=== PATIENT | female | born 1965 | race Caucasian/White ===

== ENCOUNTER 2018-05-15 10:40 | Emergency (ER) | payer MEDICAID ==
[~2018-05-15] VITALS: Ht 152.4 cm; Wt 61.2 kg
[2018-05-15 10:42] VITALS: BP 183/112
--- NOTE | 2018-05-15 11:18 | NUR ---
PT. PROVIDED WITH A WATER CUP
--- NOTE | 2018-05-15 11:22 | NUR ---
PATIENT IS A 52 YO FEMALE BIB [facility] FOR PRE BOOK EXAM. SHE IS AWAKE AND ALERT NO ACUTE DISTRESS. HX OF HTN DOES NOT TAKE MEDS, B/P IS 182/114
[2018-05-15] MEDS ORDERED: LISINOPRIL 20 MG TAB PO STA (11:56)
--- NOTE | 2018-05-15 12:36 | NUR ---
B/P 175/104 AT THIS TIME
[2018-05-15] MEDS ORDERED: cloNIDine 0.1 MG TAB ONE (13:12)
[2018-05-15] MEDS ORDERED: cloNIDine 0.1 MG TAB PO ONE (13:25)
[2018-05-15 13:56] VITALS: BP 153/82
--- NOTE | 2018-05-15 13:57 | NUR ---
Patient discharged with v/s stable. Written and verbal after care instructions given and explained. Patient alert, oriented and verbalized understanding of instructions. Police with in custody. All questions addressed prior to discharge. ID band removed. Patient advised to follow up with PMD. Rx of LISINOPRIL given. Patient educated on indication of medication including possible reaction and side effects. Opportunity to ask questions provided and answered.
[2018-05-16] MEDS ORDERED: LISINOPRIL 20 MG TAB PO SCH (09:00)
== END 2018-05-15 13:57 ==
LOC: MED 10:40
DX: Z02.89 Encounter for other administrative examinations (principal); I10 Essential (primary) hypertension; F17.210 Nicotine dependence, cigarettes, uncomplicated; Z90.49 Acquired absence of other specified parts of digestive tract
CPT/HCPCS: 99283